=== PATIENT | female | born 1980 | race Caucasian/White ===

== ENCOUNTER 2019-06-07 15:26 | Outpatient (CLI) | payer MEDICAID | END 2019-06-07 15:27 | disposition critical access hospital (66) | LOC: EMS 15:26 | PROVIDERS: ATTEND Surgery | DX: R51 Headache (principal); R19.7 Diarrhea, unspecified | CPT/HCPCS: A0425; A0429 ==

== ENCOUNTER 2019-06-07 15:39 | Emergency (ER) | payer MEDICAID ==
[2019-06-07] MEDS ORDERED: LOPERAMIDE 2 MG CAPSULE PO STA (15:47)
[2019-06-07] MEDS ORDERED: ONDANSETRON ODT 4 MG TABLET TL STA (15:47)
[2019-06-07 16:13] LABS: BASOPHILS # (AUTO) 0.1 10^3/uL (0.0-0.1); BASOPHILS % (AUTO) 0.3 %; EOSINOPHILS # (AUTO) 0.1 10^3/uL (0.0-0.7); EOSINOPHILS % (AUTO) 0.5 %; HGB - HEMOGLOBIN 14.4 g/dL (12.0-16.0); LYMPHOCYTES # (AUTO) 0.5 10^3/uL (1.5-3.5); LYMPHOCYTES % (AUTO) 2.6 %; MEAN CORPUSCULAR HEMOGLOBIN 31.4 pg (27.0-31.0); MEAN CORPUSCULAR HGB CONC 34.8 g/dL (32.0-36.0); MEAN CORPUSCULAR VOLUME 90.2 fL (81.0-99.0); MEAN PLATELET VOLUME 11.5 fL (7.9-10.8); MONOCYTES # (AUTO) 0.8 10^3/uL (0.0-1.0); MONOCYTES % (AUTO) 4.4 %; NEUTROPHILS # (AUTO) 17.1 10^3/uL (1.5-6.6); NEUTROPHILS % (AUTO) 91.5 %; PLT - PLATELET COUNT 151 10^3/uL (130-450); RED BLOOD COUNT 4.59 10^6/uL (4.20-5.40); RED CELL DISTRIBUTION WIDTH 11.6 % (12.0-15.0); WHITE BLOOD COUNT 18.7 x10^3/uL (4.8-10.8)
[2019-06-07 16:28] LABS: ALBUMIN 4.2 g/dL (3.2-5.5); ALBUMIN/GLOBULIN RATIO 1.4 (1.0-2.2); BILIRUBIN,TOTAL 2.2 mg/dL (0.2-1.0); CREATININE 0.8 mg/dL (0.4-1.0); TOTAL PROTEIN 7.2 g/dL (6.7-8.2)
[2019-06-07] MEDS ORDERED: SODIUM CHLORIDE 0.9% 1,000 ML IV ONE (17:28)
[2019-06-07] MEDS ORDERED: LACTATED RINGERS 1,000 ML IV STA (17:28)
[2019-06-07] MEDS ORDERED: MORPHINE 2 MG/ML CARPUJECT IVP STA (17:29)
[2019-06-07] MEDS ORDERED: POTASSIUM CHLOR 10 MEQ/100 ML 10 MEQ/100 ML BAG IV ONE (17:29)
--- NOTE | 2019-06-07 17:31 | ED Physician Documentation ---
PD HPI NVD - Stated complaint Stated Complaint: N/D - Chief complaint Chief Complaint: Abd Pain - History obtained from History obtained from: Patient - History of Present Illness Timing - onset: Today (39-year-old woman with history of allergies, otherwise healthy woke up this morning at 5 AM with sudden and severe vomiting and diarrhea. Subsequently she had a gradual onset bitemporal headache. She frequently has headaches for which she takes Tylenol with codeine, but did not try it because she did not think she could keep it down. She has some mild periumbilical pain. No fevers. No recent travel or sick contacts.) Review of Systems Ten Systems: 10 systems reviewed and negative Constitutional: denies: Fever, Chills Nose: denies: Rhinorrhea / runny nose GI: reports: Abdominal Pain, Nausea, Vomiting, Diarrhea. denies: Hematemesis, Bloody / black stool : denies: Dysuria PD PAST MEDICAL HISTORY - Present Medications Home Medications: Ambulatory Orders Medication Instructions Recorded Confirmed Ciprofloxacin HCl [Cipro] 500 mg PO BID #14 tablet 06/07/19 Metoclopramide [Reglan] 10 mg PO Q6H PRN #20 tablet 06/07/19 Metronidazole [Flagyl] 500 mg PO TID #21 tablet 06/07/19 - Allergies Allergies/Adverse Reactions: Allergies Allergy/AdvReac Type Severity Reaction Status Date / Time acetaminophen [From Percocet] Allergy Anaphylaxis Verified 06/07/19 15:53 oxycodone [From Percocet] Allergy Anaphylaxis Verified 06/07/19 15:53 Penicillins Allergy Anaphylaxis Verified 06/07/19 15:53 Sulfa (Sulfonamide Allergy Anaphylaxis Verified 06/07/19 15:53 Antibiotics) PD ED PE NORMAL - Vitals Vital signs reviewed: Yes (Tachycardic) - General General: Alert and oriented X 3, No acute distress - HEENT HEENT: Pharynx benign - Neck Neck: Supple, no meningeal sign, No bony TTP - Cardiac Cardiac: RRR, No murmur - Respiratory Respiratory: No respiratory distress, Clear bilaterally - Abdomen Abdomen: Normal bowel sounds, Soft, Non tender - Derm Derm: Normal color, Warm and dry - Extremities Extremities: No edema, No calf tenderness / cord - Neuro Neuro: Alert and oriented X 3, Normal speech Results - Vitals Vitals: Vital Signs - 24 hr 10/06/07/19 06/07/19 15:53 17:56 19:03 Temperature 37.3 C 37.0 C Heart Rate 125 H 98 99 Respiratory 16 18 14 Rate Blood Pressure 97/53 L 105/60 101/66 O2 Saturation 98 99 99 Oxygen O2 Source Room air - Labs Labs: Laboratory Tests 06/07/19 06/07/19 06/07/19 16:07 16:07 19:32 WBC 18.7 H RBC 4.59 Hgb 14.4 Hct 41.4 MCV 90.2 MCH 31.4 H MCHC 34.8 RDW 11.6 L Plt Count 151 MPV 11.5 H Neut # (Auto) 17.1 H Lymph # (Auto) 0.5 L [place] # (Auto) 0.8 Eos # (Auto) 0.1 Baso # (Auto) 0.1 Absolute Nucleated RBC 0.00 Nucleated RBC % 0.0 Sodium 140 Potassium 3.2 L Chloride 105 Carbon Dioxide 22 Anion Gap 13.0 BUN 8 Creatinine 0.8 Estimated GFR (MDRD) 80 L Glucose 117 H Calcium 9.0 Total Bilirubin 2.2 H AST 20 ALT 15 Alkaline Phosphatase 37 L Total Protein 7.2 Albumin 4.2 Globulin 3.0 Albumin/Globulin Ratio 1.4 Lipase 22 Urine Color DARK YELLOW Urine Clarity HAZY Urine pH 5.5 Ur Specific [place] >=1.030 H Urine Protein 30 H Urine Glucose (UA) NEGATIVE Urine Ketones 15 H Urine Occult Blood TRACE-INTA Urine Nitrite NEGATIVE Urine Bilirubin NEGATIVE Urine Urobilinogen 0.2 (NORMAL) Ur Leukocyte Esterase NEGATIVE Urine RBC 0-5 Urine WBC 6-10 H Ur Squamous Epith Cells NONE SEEN Urine Bacteria Few Urine Mucus Moderate Strands Ur Microscopic Review INDICATED Urine Culture Comments INDICATED Urine HCG, Qual 06/07/19 19:32 WBC RBC Hgb Hct MCV MCH MCHC RDW Plt Count MPV Neut # (Auto) Lymph # (Auto) [place] # (Auto) Eos # (Auto) Baso # (Auto) Absolute Nucleated RBC Nucleated RBC % Sodium Potassium Chloride Carbon Dioxide Anion Gap BUN Creatinine Estimated GFR (MDRD) Glucose Calcium Total Bilirubin AST ALT Alkaline Phosphatase Total Protein Albumin Globulin Albumin/Globulin Ratio Lipase Urine Color Urine Clarity Urine pH Ur Specific [place] >=1.030 H Urine Protein Urine Glucose (UA) Urine Ketones Urine Occult Blood Urine Nitrite Urine Bilirubin Urine Urobilinogen Ur Leukocyte Esterase Urine RBC Urine WBC Ur Squamous Epith Cells Urine Bacteria Urine Mucus Ur Microscopic Review Urine Culture Comments Urine HCG, Qual NEGATIVE - Rads (name of study) CT A/P Radiology: EMP read contemporaneously (Rectal wall thickening and perirectal fat stranding; Normal appendix) PD MEDICAL DECISION MAKING - ED course ED course: This is a young lady with symptoms consistent with gastroenteritis. She is nontender. She does have a headache but it was gradual in onset and typical for her. On recheck at 8 PM she was developed more right-sided abdominal pain and had developed tenderness on the right lower quadrant. A CT was ordered. Pain was still not too bad and she declined pain medication but needed something else for nausea. She had originally received Zofran and felt that was not that effective and Reglan was ordered. CT shows colitis. Treated with Cipro and Flagyl. Follow-up for colonoscopy was advised. She was feeling much better after meds. Departure - Departure Disposition: Home, Self Care Clinical Impression: Colitis Condition: Good Record reviewed to determine appropriate education?: Yes Instructions: ED Gastroenteritis Bacterial Prescriptions: Ciprofloxacin HCl [Cipro] 500 mg PO BID #14 tablet Metoclopramide [Reglan] 10 mg PO Q6H PRN #20 tablet PRN Reason: nausea or headache Metronidazole [Flagyl] 500 mg PO TID #21 tablet Comments: Do not drink alcohol while on the antibiotics. Return for new or worsening symptoms. Given the findings on the CAT scan you will need a follow-up colonoscopy in about 8 weeks, talk with your doctor about this and follow-up. You should follow-up with your doctor in 2 to 3 days for recheck, that would be or Thursday. Call tomorrow for an appointment.
[2019-06-07 19:41] LABS: GLUCOSE, URINE (UA) NEGATIVE (NEGATIVE); KETONES,URINE (UA) 15 mg/dL (NEGATIVE); LEUKOCYTE ESTERASE, URINE NEGATIVE (NEGATIVE); NITRITE,URINE NEGATIVE (NEGATIVE); OCCULT BLOOD,URINE TRACE-INTA (NEGATIVE); PH,URINE 5.5 PH (5.0-7.5); PROTEIN,URINE 30 mg/dL (NEGATIVE); UROBILINOGEN,URINE 0.2 (NORMAL) E.U./dL (NORMAL)
[2019-06-07 19:49] LABS: BILIRUBIN,URINE NEGATIVE (NEGATIVE); CLARITY,URINE HAZY (CLEAR); ICTOTEST,URINE NEGATIVE
[2019-06-07 19:54] LABS: HCG UR QUAL NEGATIVE
[2019-06-07] MEDS ORDERED: METOCLOPRAMIDE 10 MG/2 ML VIAL IVP STA (20:08)
[2019-06-07 20:16] LABS: BACTERIA,URINE Few /HPF (None Seen); MUCUS,URINE Moderate Strands; RBC,URINE 0-5 /HPF (0-5); SQUAMOUS EPITHELIAL CELL,UR NONE SEEN (<= Few)
[2019-06-07] MEDS ORDERED: IOVERSOL 320 100 ML VIAL IVP ONE (20:30)
--- NOTE | 2019-06-07 21:14 | CT Report ---
Reason: IV only, R abd pain Procedure Date: 06/07/2019 Accession Number: [id number] / [id number] Procedure: CT - Abdomen/Pelvis W CPT Code: FULL RESULT: EXAM: CT ABDOMEN AND PELVIS EXAM DATE: 06/07/2019 08:53 PM. CLINICAL HISTORY: IV only, R abd pain. COMPARISONS: None. TECHNIQUE: Routine helical CT imaging was performed through the abdomen and pelvis. IV contrast: OPTI 320 100ML. Enteric contrast: No. Reconstructions: Coronal and sagittal. In accordance with CT protocol optimization, one or more of the following dose reduction techniques were utilized for this exam: automated exposure control, adjustment of mA and/or KV based on patient size, or use of iterative reconstructive technique. FINDINGS: Lung Bases: Unremarkable. Liver: Normal. No masses. Gallbladder/Bile Ducts: Unremarkable. Spleen: Normal. Pancreas: Normal. Adrenal Glands: Normal. Kidneys: Normal. No masses or hydronephrosis. Peritoneal Cavity/Bowel: The appendix is well visualized and normal. Rectal wall thickening with perirectal fat stranding is seen in the region of pelvis (image 72 on series 3). Differentials include mild proctocolitis, infectious versus inflammatory/ulcerative colitis. To be correlated clinically. Pelvic Organs: Normal. The bladder and visualized pelvic organs are within normal limits. Vasculature: No aneurysms or other significant abnormality. Bones: No significant abnormality. Other: None. IMPRESSION: Rectal wall thickening with perirectal fat stranding, differentials include mild proctocolitis, infectious versus inflammatory/ulcerative colitis. To be correlated clinically. Normal appendix. Unremarkable uterus and ovaries. No other acute abnormality. RADIA
[2019-06-07] MEDS ORDERED: CIPROFLOXACIN 250 MG TABLET PO STA (21:17)
[2019-06-07] MEDS ORDERED: metroNIDAZOLE 250 MG TABLET PO STA (21:17)
[2019-06-07] MEDS ORDERED: ONDANSETRON ODT 4 MG Prepack 2 TL STA (21:17)
[2019-06-07 21:21] VITALS: BP 95/55
== END 2019-06-07 21:50 | disposition home or self-care (01) ==
LOC: ED 15:39
DX: K52.9 Noninfective gastroenteritis and colitis, unspecified (principal); R51 Headache
CPT/HCPCS: 36415; 74177; 80053; 81001; 81025; 83690; 85025; 87086; 96365; 96366; 96375; 99284; A9270; J2765; J7120; Q0162; Q9967; 81003

== ENCOUNTER 2020-09-25 14:49 | Outpatient (CLI) | payer MEDICAID ==
--- NOTE | 2020-09-26 14:57 | Mammography Report ---
BILATERAL DIGITAL SCREENING MAMMOGRAM 3D/2D: 09/25/2020 CLINICAL: Routine screening. Personal history of left breast cancer. No prior exams were available for comparison. The tissue of both breasts is extremely dense, which l owers the sensitivity of mammography. No significant masses, calcifications, or other findings are seen in either breast. IMPRESSION: NEGATIVE There is no mammographic evidence of malignancy. A 1 year screening mammogram is recommended. This exam was interpreted at Station ID: [id number]. NOTE: For mammograms, a report in lay terms will be sent to the patient. Approximately 15% of breast malignancies will not be visualized mammographically. In the management of a palpable breast mass, a negative mammogram must not discourage biopsy of a clinically suspicious lesion. Electronically Signed By: Solo Cardozo M.D. [email or web address]/penrad:09/25/2020 16:55:43 ACR BI-RADS Category 1: Negative 3341F PARENCHYMAL PATTERN: (VD) - The breast(s) demonstrate(s) extremely dense parenchyma, limiting the sen sitivity of mammography. BI-RADS CATEGORY: (1) - 1 RECOMMENDATION: (ANNUAL) - Recommend routine annual screening mammography. [id number] 1 year screening LATERALITY: (B)
== END 2020-09-25 14:50 | disposition home or self-care (01) ==
LOC: DI.N 14:49
PROVIDERS: ATTEND Nurse Practitioner Family
DX: Z12.31 Encounter for screening mammogram for malignant neoplasm of breast (principal)